=== PATIENT | male | born 1990 | race Caucasian/White ===

== ENCOUNTER 2017-03-28 21:16 | Emergency (ER) ==
[2017-03-28 21:29] VITALS: BP 116/77; TEMP 101.8; BMI 23.5
--- NOTE | 2017-03-28 21:31 | ED.PDOC ---
General ED Provider: Dr. KONG WILLIS Chief Complaint: Fever Stated Complaint: patient is a 27 year old female who comes to the ER with complains of Fever, bodyaches, chills, sore throat for the past 2 days. Time Seen by Physician: 21:29 Mode of Arrival: Walk-In Information Source: Patient Exam Limitations: No limitations Nursing and Triage Documentation Reviewed and Agree: Yes Reviewed sepsis parameters & appropriate labs ordered?: Yes System Inflammatory Response Syndrome: Temp 101F or Greater, Pulse >90 BPM Sepsis Protocol: For patient's 13 years and over: Temp is 96.8 and below OR 101 and greater Pulse >90 BPM Resp >20/minute Acutely Altered Mental Status Are patient's symptoms suggestive of a new infection, such as: -Pneumonia -Skin, Soft Tissue -Endocarditis -UTI -Bone, Joint Infection -Implantable Device -Acute Abdominal Infection -Wound Infection -Meningitis -Blood Stream Catheter Infection -Unknown Miscellaneous Complaint Exam - Febrile Illness/Adult Complaint/Exam Onset/Duration: 2 days Symptoms Are: Still present Timing: Constant Highest Temperature Recorded: 101.8 Initial Severity: Moderate Current Severity: Moderate Aggravating: Reports: Other (swalowing ) Associated Signs and Symptoms: Reports: Sore throat, Chills Pseudomonas Risk Factors: Reports: None Serious Bacterial Infection Risk Factors: Reports: None Current Antibiotic Use: Yes Specific Findings: Present: Lymphadenopathy (left neck area ). Absent: Meningeal signs Differential Diagnoses: Bacteremia, Pneumonia, Sepsis Patient Advised to Stop Smoking: Yes Review of Systems - Review Of Systems Constitutional: Reports: Chills, Fever, Other (boday aches ) Eyes: Reports: No symptoms Ears, Nose, Mouth, Throat: Reports: Throat pain Respiratory: Reports: No symptoms Cardiac: Reports: No symptoms GI: Reports: No symptoms : Reports: No symptoms Musculoskeletal: Reports: Muscle pain Neurological: Reports: Anxiety All Other Systems: Reviewed and Negative Past Medical History - Past Medical History Previously Healthy: Yes Endocrine: Reports: None Cardiovascular: Reports: None Respiratory: Reports: None Hematological: Reports: None Gastrointestinal: Reports: None Genitourinary: Reports: None Neuro/Psych: Reports: None Musculoskeletal: Reports: None Cancer: Reports: None - Surgical History General Surgical History: Reports: None - Family History Family History: Reports: None - Social History Smoking Status: Current every day smoker, Light tobacco smoker Hx Substance Use: Yes (marijuana) Alcohol Screening: None - Immunizations Tetanus Shot up to Date: No Physical Exam - Physical Exam Appearance: Ill-appearing, Well-nourished Ill-appearing: Mild Pain Distress: Moderate Eyes: DENY, EOMI, Conjunctiva clear ENT: Erythema, Exudate Neck: Supple Cardiovascular: Tachycardia Musculoskeletal: Normal strength, ROM intact, No edema, No calf tenderness Skin: Warm, Dry, Normal color Neurological: Sensation intact, Motor intact, Reflexes intact, Cranial nerves intact, Alert, Oriented Psychiatric: Affect appropriate, Mood appropriate Critical Care Note - Critical Care Note Total Time (mins): 0 Course - Course Hematology/Chemistry: 03/28/17 21:47 Orders, Labs, Meds: Lab Review 03/28/17 03/28/17 21:35 21:47 WBC 17.97 H RBC 5.12 Hgb 15.1 Hct 43.6 MCV 85.2 MCH 29.5 MCHC 34.6 RDW Coeff of [place]att 13.2 Plt Count 176 Immature Gran % (Auto) 0.4 Neut % (Auto) 79.7 Lymph % (Auto) 7.5 L [place] % (Auto) 11.9 H Eos % (Auto) 0.0 Baso % (Auto) 0.5 Immature Gran # (Auto) 0.1 Neut # 14.3 H Lymph # 1.3 [place] # 2.1 H Eos # 0.0 Baso # 0.1 Influenza A (Rapid) Negative by naat Influenza B (Rapid) Negative by naat Orders Category Date Time Status IV ACCESS ONCE CARE 03/28/17 21:32 Active ED APPLY O2 .ONCE EMERGENCY 03/28/17 21:32 Active ED BOX BUILDER APPLIED .ONCE EMERGENCY 03/28/17 21:32 Active ED VITAL SIGNS Q1HR EMERGENCY 03/28/17 21:32 Active BLOOD CULTURE (ED ONLY) Stat LAB 03/28/17 21:47 Received CBC W/ AUTO DIFF Stat LAB 03/28/17 21:47 Completed COMPREHENSIVE METABOLIC PANEL Stat LAB 03/28/17 21:47 Received FLU A & B MOLECULAR [FLU A/B MOLECULAR] Stat LAB 03/28/17 21:35 Completed LACTIC ACID Stat LAB 03/28/17 21:47 Received MOLECULAR GROUP A STREP Stat LAB 03/28/17 21:35 Completed PROCALCITONIN Stat LAB 03/28/17 21:47 Received Ibuprofen [Motrin] MEDS 03/28/17 21:35 Discontinued 800 mg PO ONCE STA Medications Discontinued Medications Generic Name Dose Route Start Last Admin Trade Name Michaelq PRN Reason Stop Dose Admin Ibuprofen 800 mg 03/28/17 21:35 03/28/17 21:43 Motrin PO 03/28/17 21:36 800 mg ONCE STA Administration Vital Signs: Temp Pulse Resp BP Pulse Ox 03/28/17 21:17 101.8 F H 109 H 20 116/77 95 Departure - Departure Time of Disposition: 21:58 Disposition: HOME SELF-CARE Discharge Problem: Pharyngitis Qualifiers: Pharyngitis/tonsillitis etiology: unspecified etiology Qualified Code(s): J02.9 - Acute pharyngitis, unspecified Instructions: Pharyngitis (ED) Condition: Fair Pt referred to PMD for follow-up: Yes IPMP verified?: No Additional Instructions: Take antibiotics as prescribed Follow up with PCP in 3 days Prescriptions: Amoxicillin/Potassium Clav [Augmentin 500-125 mg Tab] 1 tab PO Q8HR #30 tablet Ibuprofen [Motrin] 600 mg PO Q6H PRN #30 tablet PRN Reason: Analgesia Allergies/Adverse Reactions: Allergies No Known Allergies Allergy (Verified 03/28/17 21:26) Home Medications: Ambulatory Orders Amoxicillin/Potassium Clav [Augmentin 500-125 mg Tab] 1 tab PO Q8HR #30 tablet 03/28/17 Ibuprofen [Motrin] 600 mg PO Q6H PRN #30 tablet 03/28/17 Disposition Discussed With: Patient
[2017-03-28] MEDS ORDERED: MOTRIN PO STA (21:35)
[2017-03-28] MEDS ORDERED: AUGMENTIN 875-125 MG TAB PO STA (22:06)
== END 2017-03-28 22:45 | disposition home or self-care (01) ==
LOC: ED 21:16
DX: J02.9 Acute pharyngitis, unspecified (principal); F17.210 Nicotine dependence, cigarettes, uncomplicated
CPT/HCPCS: 36415; 80053; 83605; 84145; 85025; 87040; 87502; 87651; 99283